=== PATIENT | male | born 1950 | race Caucasian/White ===

== ENCOUNTER 2019-04-18 14:45 | Inpatient (IN) | payer MEDICARE ==
[~2019-04-18] VITALS: Ht 185.4 cm; Wt 102.6 kg
--- NOTE | ~2019-04-18 | EKG ---
[place], [place] ELECTROCARDIOGRAM REPORT NAME: ISMAEL PANIAGUA UNIT #: [id number] ROOM: 426 DOCTOR: KITTY DRAFT REPORT BIRTHDATE: [birth year] [facility] Test Date: 2019-04-18 Test Time: 15:41:07 Pat Name: ISMAEL PANIAGUA Department: Room: 426 Gender: M [employer]er: : 1950 Requested By: LYN MENDES Order Number: [id number] Reading MD: Janet Grossman MD Measurements Intervals [place] Rate: 66 P: 35 [place]: 192 QRS: 64 QRSD: 112 T: 5 QT: 424 QTc: 445 Interpretive Statements Sinus rhythm Multiform ventricular premature complexes Borderline intraventricular conduction delay No previous ECG available for comparison Electronically Signed On 04-19-2019 8:08:57 PST by Janet Grossmna MD CM:EKGRPT:ELECTROCARDIOGRAM REPORT [id number] LYN BECERRA DRAFT REPORT LYN MENDES DO
[2019-04-18 14:48] VITALS: BP 180/88
[2019-04-18 15:50] LABS: BASO % 0.5 % (0.0-1.0); EOS # 0.2 10*3/uL (0.0-0.4); EOS % 2.2 % (1.0-4.0); HEMATOCRIT 46.1 % (42.0-52.0); HEMOGLOBIN 15.4 g/dl (14.0-18.0); LYMPH # 4.6 10*3/uL (1.3-4.4); LYMPH % 55.5 % (27.0-41.0); MEAN CELL VOLUME 96.8 fl (80.0-94.0); MEAN CORPUSCULAR HGB 32.4 pg (27.0-31.0); MEAN CORPUSCULAR HGB CONC 33.4 g/dl (33.0-37.0); MONO # 0.4 10*3/uL (0.1-1.0); MONO % 4.3 % (3.0-9.0); NEUT # 3.1 10*3/uL (2.3-7.9); NEUT % 37.3 % (47.0-73.0); PLATELET COUNT AUTOMATED 200 10*3/uL (130-400); RED BLOOD COUNT 4.76 10*6/uL (4.50-5.90); RED CELL DISTRI WIDTH 13.9 % (0-14.5); WHITE BLOOD COUNT 8.3 10*3/uL (4.8-10.8)
[2019-04-18 16:00] VITALS: BP 138/79
[2019-04-18 16:09] LABS: ACT PARTIAL THROMBO TIME 26.4 SECONDS (20.0-32.1); INTERNATIONAL NORM RATIO 0.9 (2.0-3.5)
[2019-04-18 16:11] LABS: ALKALINE PHOSPHATASE 66 U/L (45-117); BUN 13 mg/dl (7-24); CHLORIDE 105 mmol/L (98-107); CREATININE 0.95 mg/dL (0.70-1.30); LIPASE 98 U/L (73-393); POTASSIUM 4.6 mmol/L (3.5-5.1); SGOT/AST 13 IU/L (3-35); SGPT/ALT 19 U/L (12-78); SODIUM 136 mmol/L (136-145); TOTAL PROTEIN 7.1 gm/dL (6.4-8.2)
[2019-04-18 16:18] LABS: URINE AMPHETAMINES < 1000 (1000ng/ml); URINE BARBITURATES < 200 (200ng/ml); URINE BENZODIAZEPINES < 200 (200ng/ml); URINE CANNABINOIDS (THC) > 50 (50ng/ml); URINE COCAINE < 300 (300ng/ml); URINE METHADONE < 300 (300ng/ml); URINE OPIATES > 300 (300ng/ml)
[2019-04-18 16:20] LABS: BILIRUBIN NEGATIVE (NEGATIVE); BLOOD 1+ (NEGATIVE); CLARITY CLEAR (CLEAR); COLOR YELLOW (YELLOW); GLUCOSE NEGATIVE (NEGATIVE); KETONE NEGATIVE (NEGATIVE); LEUKO ESTERASE NEGATIVE (NEGATIVE); NITRITE NEGATIVE (NEGATIVE); SPECIFIC GRAVITY >= 1.030 (1.005-1.030); UROBILINOGEN 0.2 E.U./dl (0.2-1.0)
[2019-04-18 16:31] LABS: ACETAMINOPHEN (TYLENOL) < 5.0 ug/ml (10-30); ETHYL ALCOHOL < 3.0 mg/dl (<3); TROPONIN I < 0.015 ng/ml (<0.045)
[2019-04-18 16:32] LABS: URINE PHENCYCLIDINE < 25 (25ng/ml)
[2019-04-18 16:45] VITALS: BP 138/79
--- NOTE | 2019-04-18 16:50 | NUR ---
PATIENT MEETS [facility]. CINA=15. PATIENT IS WANTING TO FOLLOW UP WITH HIS PHYSICIAN FOR HIS AFTERCARE PLAN. IMER BARRY B.A. GLOBAL RISK MANAGEMENT DIRECTOR
[2019-04-18 16:54] LABS: BACTERIA TRACE; RBC 0-2 rbc/hpf (0-2); WBC 0-2 wbc/hpf (0-5)
[2019-04-18] MEDS ORDERED: ATIVAN0.5 MG PO (18:30)
[2019-04-18] MEDS ORDERED: CLONAZEPAM0.5 M1 PO (18:30)
[2019-04-18] MEDS ORDERED: SUBOXONE 2 MG-1 EACH SL (18:31)
--- NOTE | 2019-04-18 19:20 | NUR ---
PATIENT STATES HE FEELS A LITTLE NAUSEATED, ZOFRAN GIVEN. PATIENT ALSO REQUESTED THAT HIS URINE DRUG BE RETESTED, DUE TO HIM TESTING POSITIVE FOR THC, IN WHICH THE PATIENT STATES HE DOESNT SMOKE WEED, BUT DID USE CBD OILS 3 MONTHS AGO AND DIDNT THINK IT WOULD STILL BE IN HIS SYSTEM. [facility] SENT.
[2019-04-18 20:00] VITALS: BP 131/69
[2019-04-18 20:06] LABS: URINE AMPHETAMINES < 1000 (1000ng/ml); URINE BARBITURATES < 200 (200ng/ml); URINE BENZODIAZEPINES < 200 (200ng/ml); URINE CANNABINOIDS (THC) < 50 (50ng/ml); URINE COCAINE < 300 (300ng/ml); URINE METHADONE < 300 (300ng/ml); URINE OPIATES < 300 (300ng/ml)
[2019-04-18 20:07] LABS: URINE PHENCYCLIDINE < 25 (25ng/ml)
--- NOTE | 2019-04-18 23:42 | NUR ---
24 HR chart check completed.
[2019-04-19] VITALS: BP 122/69
--- NOTE | 2019-04-19 07:10 | NUR ---
PT AWAKE. REPORT RECEIVED FROM GABRIELE GRAHAM. [facility]
[2019-04-19 08:00] VITALS: BP 124/72
--- NOTE | 2019-04-19 10:19 | NUR ---
PER PT REQUEST I SPOKE TO DR RATLIFF AND REQUESTED ANTIVERT FOR DIZZINESS. SHE STATED SHE WILL PUT IN ORDERS
--- NOTE | 2019-04-19 11:02 | NUR ---
ADMINISTERED PO VISTARIL, AND ZOFRAN R/T C/O ANXIETY AND NAUSEA. ALSO ADMINISTERED PO MECLAZINE FOR C/O DIZZINESS. WILL MONITOR FOR EFFECTIVENESS
--- NOTE | 2019-04-19 11:14 | NUR ---
[place] STAFF SPOKE WITH PATIENT. PATIENT STILL WANTS TO CONTINUE TO FOLLOW UP WITH HIS PHYSICIAN FOR HIS AFTERCARE PLAN. IMER BARRY B.A. FINISH SPECIALIST
[2019-04-19 12:00] VITALS: BP 123/56
[2019-04-19 16:00] VITALS: BP 112/86
--- NOTE | 2019-04-19 19:53 | NUR ---
PATIENT REQUESTED SOMETHING FOR NAUSEA AND HIS ANTIVERT. BOTH WERE GIVEN. PATIENT ALSO QUESTIONING WHY HE IS ONLY GETTING 2MG OF SUBUTEX. I EXPLAINED THE TAPER AND HE STATED "THATS NOT WHAT THE DOCTOR TOLD ME". PATIENT LEFT WITH CALL LIGHT NEAR.
[2019-04-19 20:00] VITALS: BP 120/90
--- NOTE | 2019-04-19 22:28 | NUR ---
PATIENT REQUESTED TO NOT BE WOKEN UP AT MIDNIGHT FOR VITAL SIGNS.
--- NOTE | 2019-04-20 | NUR ---
PATIENT REFUSED MIDNIGHT VITALS. DR. BLEDSOE MADE AWARE
--- NOTE | 2019-04-20 01:17 | NUR ---
24 HR chart check completed.
[2019-04-20 08:00] VITALS: BP 128/84
--- NOTE | 2019-04-20 14:00 | NUR ---
PER [facility] PT C/O OF FEELING "FRACTURED" D/T SUBUTEX ON ASSESSMENT PT DENIES ANY ODD FEELINGS PER PT HE IS FEELING FINE. PT ALSO STATES HE MAY SKIP HIS LAST DOSE OF SUBUTEX SCHEDULED FOR TOMORROW AT 1200, WHEN ASKED WHY HE SAID HE DOESNT WANT TO FEEL LOOPY, I AGAIN ASKED PATIENT IF THE SUBUTEX I HAD PREVIOUSLY GIVEN HIM MADE HIM FEEL FUNNY AND PATIENT DENIED FEELING FUNNY FROM PRIOR DOSE OF SUBUTEX, PER PT "JUST INCASE BECAUSE IM DRIVING"
[2019-04-20 16:00] VITALS: BP 125/60
--- NOTE | 2019-04-20 18:37 | NUR ---
PRN ANTIVERT AND ZOFRAN GIVEN FOR C/O OF NAUSEA AND DIZZINESS
[2019-04-20 20:00] VITALS: BP 146/70
--- NOTE | 2019-04-20 23:14 | NUR ---
MARITZA PROVIDED FOR ANXIETY. HARIKA VINSON.
[2019-04-21] VITALS: BP 136/98
--- NOTE | 2019-04-21 05:45 | NUR ---
VISTARIL GIVEN PER PT REQUEST FOR ANXIETY.
[2019-04-21 06:58] LABS: BASO # 0.1 10*3/uL (0.0-0.1); BASO % 0.7 % (0.0-1.0); EOS # 0.3 10*3/uL (0.0-0.4); EOS % 3.7 % (1.0-4.0); HEMATOCRIT 43.1 % (42.0-52.0); HEMOGLOBIN 14.1 g/dl (14.0-18.0); LYMPH # 4.1 10*3/uL (1.3-4.4); LYMPH % 59.9 % (27.0-41.0); MEAN CELL VOLUME 97.7 fl (80.0-94.0); MEAN CORPUSCULAR HGB CONC 32.7 g/dl (33.0-37.0); MEAN PLATELET VOLUME 9.2 fl (9.6-12.3); MONO # 0.4 10*3/uL (0.1-1.0); MONO % 5.7 % (3.0-9.0); NEUT % 29.9 % (47.0-73.0); PLATELET COUNT AUTOMATED 167 10*3/uL (130-400); RED BLOOD COUNT 4.41 10*6/uL (4.50-5.90); RED CELL DISTRI WIDTH 13.6 % (0-14.5); WHITE BLOOD COUNT 6.8 10*3/uL (4.8-10.8)
[2019-04-21 07:13] LABS: CREATININE 0.93 mg/dL (0.70-1.30)
[2019-04-21 08:00] VITALS: BP 128/73
--- NOTE | 2019-04-21 11:14 | NUR ---
ROBAXIN 750 MG AND KLONIPIN 0.5 MG GIVEN FOR C/O ANXIETY.
--- NOTE | 2019-04-21 11:44 | NUR ---
ROBAXIN 750 MG GIVEN FOR C/O RESTLESS LEGS.
[2019-04-21 12:00] VITALS: BP 122/86
--- NOTE | 2019-04-21 12:43 | NUR ---
ANTIVERT 12.5 MG GIVEN FOR C/O DIZZINESS.
--- NOTE | 2019-04-21 13:52 | NUR ---
PT REFUSED VITALS AT THIS TIME. STATED "THERE WAS TOO MUCH TRAFFIC IN HIS ROOM", PER PA.
--- NOTE | 2019-04-21 17:44 | NUR ---
PT STATES HE "CHOOSES NOT TO LEAVE THIS EVENING BUT WILL LEAVE IN AM".NOTIFIED DR RODRIGUEZ.
--- NOTE | 2019-04-21 18:56 | NUR ---
VISTARIL 50 MG GIVEN FOR C/O ANXIETY.
[2019-04-21 20:00] VITALS: BP 124/77
--- NOTE | 2019-04-21 20:45 | NUR ---
PATIENT REFUSING VITALS PER PA
--- NOTE | 2019-04-21 22:56 | NUR ---
PATIENT MEDICATED WITH ANTIVERT, RESTORIL AND ZOFRAN FOR DIZZINESS, INSOMNIA AND NAUSEA. BED IN LOW POS, CALL LIGHT IN REACH.
--- NOTE | 2019-04-22 03:45 | NUR ---
PT RESTING ON BACK WITH EASY AND REGULAR RESPIRATIONS ON ROOM AIR . DENIES ANY NEEDS. CALL LIGHT WITHIN REACH.
[2019-04-22 08:00] VITALS: BP 115/75
[2019-04-22] MEDS ORDERED: ZOFRAN 4 MG ED2 TAB PO (09:44)
[2019-04-22] MEDS ORDERED: ATARAX,VISTARIL50 MG PO (09:44)
[2019-04-22] MEDS ORDERED: MECLIZINE HYD12.5 MG PO (09:44)
[2019-04-22] MEDS ORDERED: DIPHENHYDR50 MG/1 ML IV (09:44)
--- NOTE | 2019-04-22 10:24 | NUR ---
REMOVED $1,512.00 FROM [facility] PER PT REQUEST. ACCOUNTED FOR FOR AND GIVEN TO PATIENT AT BEDSIDE.
--- NOTE | 2019-04-22 12:00 | NUR ---
Discharge instructions reviewed with patient/family. Patient receptive and verbalizes understanding. Follow-up care arranged. Written instructions given to patient/family. ARNOLDO GOLD
== END 2019-04-22 14:29 | disposition home or self-care (01) | DRG 897 ==
LOC: ED 14:45 → 4E 15:48 → EDHOLD 15:48 → 4E 16:20
PROVIDERS: Emergency Medicine; Student in an Organized Health Care Education/Training Program; ADMIT Internal Medicine
DX: F11.23 Opioid dependence with withdrawal (principal); F11.29 Opioid dependence with unspecified opioid-induced disorder; R42 Dizziness and giddiness; F41.9 Anxiety disorder, unspecified